=== PATIENT | male | born 1950 | race Caucasian/White ===

== ENCOUNTER → 2024-03-31 10:52 | Outpatient (BNVA) | payer OTHER, SELFPAY | PROVIDERS: Visit Provider Specialist | DX: F03.90 Unspecified dementia, unspecified severity, without behavioral disturbance, psychotic disturbance, mood disturbance, and anxiety (principal); I70.90 Unspecified atherosclerosis; I74.9 Embolism and thrombosis of unspecified artery; I71.40 Abdominal aortic aneurysm, without rupture, unspecified | CPT/HCPCS: 96116; 99204; 99205 ==

== ENCOUNTER → 2024-07-01 11:48 | Outpatient (BNVA) | payer OTHER, SELFPAY | PROVIDERS: Visit Provider Specialist | DX: G30.9 Alzheimer's disease, unspecified (principal); F02.80 Dementia in other diseases classified elsewhere, unspecified severity, without behavioral disturbance, psychotic disturbance, mood disturbance, and anxiety | CPT/HCPCS: 36415; 99214; 99215 ==

== ENCOUNTER 2024-07-19 11:14 | Outpatient (CLI) | payer OTHER, SELFPAY ==
--- NOTE | 2024-07-19 11:00 | MR_ITS ---
WS: [id number] MRI BRAIN WITHOUT CONTRAST HISTORY: G31.84 - Mild cognitive impairment of uncertain or unknow... COMPARISON: None available. TECHNIQUE: Diffusion imaging, multiplanar T1, T2 and FLAIR imaging obtained. No evidence for acute infarct or hemorrhage. Cardenas-white matter differentiation is normal. Mild bilateral symmetric atrophy. There are a few scattered T2 and FLAIR signal hyperintensities in t he white matter. These are predominantly in the frontal lobes. No prior infarct. No hippocampal atrop hy. Ventricles and extra-axial spaces are normal. No inferior displacement of cerebellar tonsils. The sella turcica and pituitary gland are unremarkabl e. Dural venous sinuses and [place] demonstrate no abnormality on this unenhanced studies. Paranasal sinuses: Clear. Mastoid air cells: Normal. Calvarium and scalp: Intact. MR/MR head wo con* [id number] IMPRESSION: 1. No acute infarct or prior infarct. 2. Mild bilateral symmetric cerebral atrophy with mild small vessel ischemic t ype changes. 3. No hippocampal atrophy. 4. No hemosiderin.
== END 2024-07-19 11:15 | disposition home or self-care (01) ==
LOC: RAD 11:16
PROVIDERS: Visit Provider Specialist
DX: G31.84 Mild cognitive impairment of uncertain or unknown etiology (principal)
CPT/HCPCS: 70551

== ENCOUNTER 2024-07-19 12:32 | Outpatient (CLI) | payer OTHER, SELFPAY | END 2024-07-19 12:33 | disposition home or self-care (01) | LOC: LAB 12:34 | PROVIDERS: Visit Provider Specialist | DX: G31.84 Mild cognitive impairment of uncertain or unknown etiology (principal) | CPT/HCPCS: 0346U; 82542 ==

== ENCOUNTER 2024-10-04 13:55 | Outpatient (CLI) | payer OTHER, SELFPAY | END 2024-10-04 13:56 | disposition home or self-care (01) | PROVIDERS: Visit Provider Specialist | DX: G30.9 Alzheimer's disease, unspecified (principal); F02.80 Dementia in other diseases classified elsewhere, unspecified severity, without behavioral disturbance, psychotic disturbance, mood disturbance, and anxiety | CPT/HCPCS: 0346U; 36415; 83520 ==

== ENCOUNTER → 2024-10-11 09:58 | Outpatient (BNVA) | payer OTHER, SELFPAY | PROVIDERS: Visit Provider Specialist | DX: G30.9 Alzheimer's disease, unspecified (principal); G31.84 Mild cognitive impairment of uncertain or unknown etiology | CPT/HCPCS: 36415; 82542; 99215 ==

== ENCOUNTER → 2025-02-15 14:42 | Outpatient (BNVA) | payer OTHER, SELFPAY | PROVIDERS: Visit Provider Specialist | DX: G30.9 Alzheimer's disease, unspecified (principal); G31.84 Mild cognitive impairment of uncertain or unknown etiology | CPT/HCPCS: 99214 ==

== ENCOUNTER → 2025-06-21 13:25 | Outpatient (BNVA) | payer OTHER, SELFPAY | PROVIDERS: Visit Provider Specialist | DX: G30.9 Alzheimer's disease, unspecified (principal); G31.84 Mild cognitive impairment of uncertain or unknown etiology | CPT/HCPCS: 99214 ==